=== PATIENT | male | born 1955 | race Caucasian/White ===

== ENCOUNTER 2018-05-26 20:47 | Emergency (ER) | payer BC ==
[~2018-05-26] VITALS: Ht 175.3 cm; Wt 72.6 kg
[~2018-05-26 20:47] MED LIST: CETI10CA PO; ESCI20TA37 PO; EZET1TAB31 PO; FENO160T PO; METF850T2 PO
--- NOTE | 2018-05-26 21:05 | NUR ---
PT IN BED. PT IS AAOX4. PT'S LUNG SOUNDS ARE CLEARLY BILATERALLY W/ EVEN, UNLABORED BREATH SOUNDS. PT'S ABDOMEN IS ROUND, SOFT AND NON-TENDER. BOWEL SOUNDS PRESENT IN ALL 4 QUADRANTS. PT IS CRYING INTERMITTENTLY; HOWEVER, BEING COOPERATIVE. CAP REFILL < 3 SECONDS IN ALL 4 EXTREMITIES. NO SIGNS OF DISTRESS WITNESSED AT THIS TIME.
[2018-05-26] MEDS ORDERED: BENZTROPINE MESYLATE 2 MG/2 ML AMPUL IV ONE (21:15)
[2018-05-26] MEDS ORDERED: BENZTROPINE MESYLATE 2 MG/2 ML AMPUL ONE (21:17)
[2018-05-26 21:25] LABS: BASOPHILS # (AUTO) 0.1 K/uL (0.0-8.0); BASOPHILS % (AUTO) 0.7 % (0.0-2.0); EOSINOPHILS # (AUTO) 0.2 K/uL (0.0-0.7); EOSINOPHILS % (AUTO) 2.2 % (0.0-7.0); HEMATOCRIT 42.7 % (36.7-47.1); HEMOGLOBIN 14.8 g/dL (12.5-16.3); LYMPHOCYTES # (AUTO) 1.8 K/uL (20.0-40.0); LYMPHOCYTES % (AUTO) 21.6 % (20.5-51.5); MEAN CORPUSCULAR HGB CONC 35 g/dL (32.5-36.3); MEAN CORPUSCULAR VOLUME 86.5 fL (73.0-96.2); MONOCYTES # (AUTO) 0.8 K/uL (2.0-10.0); MONOCYTES % (AUTO) 9.8 % (0.0-11.0); NEUTROPHILS # (AUTO) 5.3 K/uL (1.8-8.9); NEUTROPHILS % (AUTO) 65.7 % (38.5-71.5); PLATELET COUNT (AUTO) 172 K/uL (152-348); RED BLOOD CELL COUNT(AUTO) 4.93 MIL/uL (4.06-5.63); WHITE BLOOD COUNT (AUTO) 8.1 K/uL (3.6-10.2)
[2018-05-26 21:33] LABS: CARBON DIOXIDE 27 mmol/L (21-32); CHLORIDE 103 mmol/L (98-107); GLUCOSE 153 mg/dL (74-106); POTASSIUM 3.3 mmol/L (3.5-5.1); UREA NITROGEN, BLOOD 15 mg/dL (7-18)
--- NOTE | 2018-05-26 21:33 | NUR ---
PT IN ROUTE TO CT IN [facility] WITH TRANSPORTER
[2018-05-26 21:39] LABS: ALANINE AMINOTRANSFERASE 29 U/L (16-63); ALKALINE PHOSPHATASE 40 U/L (50-136); ASPARTATE AMINOTRANSFERASE 10 U/L (15-37); BILIRUBIN,DIRECT 0.1 mg/dL (0.0-0.2); BILIRUBIN,TOTAL 0.2 mg/dL (0.2-1.0); TOTAL PROTEIN, SERUM 7.1 g/dL (6.4-8.2)
[2018-05-26 21:40] LABS: ACETAMINOPHEN < 2.0 ug/mL (10-30); ETHANOL < 3 MG/DL (0-0)
[2018-05-26 21:47] LABS: THYROID STIMULATING HORMONE 2.368 mIU/mL (0.358-3.740)
--- NOTE | 2018-05-26 21:50 | NUR ---
PT RETURN FROM CT IN [facility] WITH TRANSPORTER
--- NOTE | 2018-05-26 22:30 | NUR ---
PT'S LEAVES BEDSIDE. CLINT GASTELUM
[2018-05-26 22:36] LABS: *AMPHETAMINE, URINE NEGATIVE (NEGATIVE); *BARBITURATE, URINE NEGATIVE (NEGATIVE); *CANNABINOID, URINE POSITIVE (NEGATIVE); *COCCAINE, URINE NEGATIVE (NEGATIVE); *OPIATE, URINE NEGATIVE (NEGATIVE); *PHENCYCLIDINE SCREEN,URINE NEGATIVE (NEGATIVE)
[2018-05-26] MEDS ORDERED: CLONAZEPAM 0.5 MG TABLET PO ONE (22:45)
[2018-05-26] MEDS ORDERED: ACETAMINOPHEN ES 500 MG TABLET PO ONE (22:45)
[2018-05-26] MEDS ORDERED: NITROGLYCERIN OINT 1 GM PACKET TP ONE ×2 (22:45→22:56)
[2018-05-26] MEDS ORDERED: ASPIRIN 81 MG TAB.CHEW PO ONE (22:45)
[2018-05-26] MEDS ORDERED: CLONAZEPAM 0.5 MG TABLET ONE (22:49)
[2018-05-26] MEDS ORDERED: ASPIRIN 81 MG TAB.CHEW ONE (22:49)
[2018-05-26] MEDS ORDERED: ACETAMINOPHEN ES 500 MG TABLET ONE (22:53)
--- NOTE | 2018-05-27 | NUR ---
PT IN BED RESTING QUIETLY. PT IS POSITIONED FOR COMFORT. PT IS CALM AND COOPERATIVE. NO SIGNS OF DISTRESS WITNESSED AT THIS TIME.
--- NOTE | 2018-05-27 01:35 | NUR ---
Patient discharged to home in stable conditon. Patient reported being free of chest pain prior to discharge. Written and verbal after care instructions given. Patient verbalizes understanding of instructions. Patient able to ambulate unassisted with a steady gait. Patient left with all personal belongings.
[2018-05-27 01:45] VITALS: BP 110/63
== END 2018-05-27 01:35 | disposition home or self-care (01) ==
LOC: ER 20:48
DX: R07.9 Chest pain, unspecified (principal); R25.1 Tremor, unspecified; E78.00 Pure hypercholesterolemia, unspecified; E11.9 Type 2 diabetes mellitus without complications; Z88.0 Allergy status to penicillin; Z79.84 Long term (current) use of oral hypoglycemic drugs; Z79.899 Other long term (current) drug therapy
CPT/HCPCS: 36415; 70030-TC; 70450; 71045; 80307; 84443; 85025; 93005; A4663; A9150; G0480; G0480-TC; J0515; J7030